=== PATIENT | male | born 1960 | race Caucasian/White ===

== ENCOUNTER 2017-07-04 11:45 | Inpatient (IN) | payer OTHER ==
[~2017-07-04] VITALS: Ht 172.7 cm; Wt 87.9 kg
[2017-07-04 13:04] LABS: APPEARANCE CLOUDY (CLEAR); BACTERIA MANY /hpf (NONE SEEN); COLOR ORANGE (YELLOW); EPITHELIAL CELLS OCC /hpf (0-5); MUCUS <1+ /lpf (NONE SEEN); RED CELLS - URINE 0-5 /hpf (0-5); SPECIFIC GRAVITY 1.015 (1.005-1.020); WHITE CELLS - URINE >50 /hpf (0-5)
[2017-07-04 15:03] LABS: BASOPHILS 0.1 % (0-2); EOSINOPHILS 0.1 % (0-7); HEMATOCRIT 39.7 % (42.0-54.0); HEMOGLOBIN 13.8 g/dL (13.5-17.5); IMMATURE GRANULOCYTES 0.5 % (0-5); LYMPHOCYTES 12.7 % (15-50); MCH 32.6 pg (26.0-34.0); MCHC 34.8 g/dL (31.0-37.0); MCV 93.9 fL (80.0-100.0); MONOCYTES 6.4 % (2-11); NEUTROPHILS 80.2 % (40-80); PLATELET COUNT 180 10x3/uL (130-400); RBC 4.23 10x6/uL (4.20-6.10); RDW 11.4 % (11.5-14.5); WBC 14.4 10x3/uL (4.8-10.8)
[2017-07-04 15:26] LABS: ALBUMIN 3.1 g/dL (3.4-5.0); ANION GAP 15.9 mmol/L (8-16); BILIRUBIN - TOTAL 0.73 mg/dL (0.2-1.3); CALCIUM 8.4 mg/dL (8.5-10.1); CARBON DIOXIDE 24.1 mmol/L (21.0-32.0); CREATININE - SERUM 1.3 mg/dL (0.6-1.3); MAGNESIUM - SERUM 2.2 mg/dL (1.8-2.4); PROTEIN - SERUM 6.8 g/dL (6.4-8.2)
[2017-07-04] MEDS ORDERED: NEURONTIN 400400 MG PO (21:15)
[2017-07-04] MEDS ORDERED: TENORMIN100 MG PO (21:16)
[2017-07-04] MEDS ORDERED: BUPROPION HCL150 M1 PO (21:16)
[2017-07-04] MEDS ORDERED: CYCLOBENZAPRINE10 MG PO (21:17)
[2017-07-04] MEDS ORDERED: MOBIC7.5 MG PO (21:17)
[2017-07-04] MEDS ORDERED: ZETIA10 MG PO (21:17)
[2017-07-04] MEDS ORDERED: BUTALB-APAP-CA1 EACH PO (21:18)
[2017-07-04] MEDS ORDERED: BAYER CHEWABLE81 MG PO (21:18)
[2017-07-04] MEDS ORDERED: VITAMIN D2000 UNIT PO (21:19)
[2017-07-04] MEDS ORDERED: ULTRAM50 MG PO (21:19)
[2017-07-04] MEDS ORDERED: CLARITIN10 MG/TAB PO (21:20)
--- NOTE | 2017-07-04 21:28 | NUR ---
PATIENT ARRIVED FROM THE ER VIA WHEELCHAIR, ALERT AND ORIENTED TO ROOM AND CALL LIGHT. SPOUSE AT BEDSIDE. CALL LIGHT IN REACH.
[2017-07-05] VITALS (7 sets, daily range): BP systolic 102–118; BP diastolic 50–76; Ht 172.7 cm; Wt 87.9 kg
--- NOTE | 2017-07-05 00:58 | NUR ---
MORPHINE 4 MG GIVEN FPR C/O PAIN TO HEAD.
--- NOTE | 2017-07-05 02:50 | NUR ---
TYLENOL 650 MG GIVEN AT PT REQUEST FOR C/O DIEGO. AT BED SIDE.
--- NOTE | 2017-07-05 08:20 | NUR ---
AM ROUNDS - PT IS AWAKE AT THIS TIME AND IN BED. MONITOR SHOWING SR, HR 89. O2 AT 4L VIA NC. IV TO RIGTH BREAST. NO NEEDS AT THIS TIME. BED AT LOWEST POSITION. CALL TAVARES IN USE/REACH. SIDE RAILS UP X2. WILL CONTINUE TO MONITOR
--- NOTE | 2017-07-05 08:28 | NUR ---
AM ROUNDS - PT IS IN BED AND AWAKE AT THIS TIME. AT BEDSIDE. IV TO RIGTH FA, SL PT IS ON ROOM AIR. PT IS UP AD ROBERT. BED AT LOWEST POSITION. CALL TAVARES IN USE/REACH. SIDE RAILS UP X2. WILL CONTINUE TO MONITOR
[2017-07-05 11:25] LABS: BASOPHILS 0.1 % (0-2); EOSINOPHILS 0.4 % (0-7); HEMATOCRIT 36.2 % (42.0-54.0); HEMOGLOBIN 12.4 g/dL (13.5-17.5); IMMATURE GRANULOCYTES 0.4 % (0-5); LYMPHOCYTES 8.1 % (15-50); MCHC 34.3 g/dL (31.0-37.0); MCV 93.3 fL (80.0-100.0); MEAN PLATELET VOLUME 9.9 fL (7.4-10.4); PLATELET COUNT 191 10x3/uL (130-400); RBC 3.88 10x6/uL (4.20-6.10); RDW 11.6 % (11.5-14.5); WBC 11.2 10x3/uL (4.8-10.8)
[2017-07-05 11:53] LABS: ANION GAP 11.8 mmol/L (8-16); CALCIUM 8.5 mg/dL (8.5-10.1); CARBON DIOXIDE 25.1 mmol/L (21.0-32.0); CREATININE - SERUM 1.2 mg/dL (0.6-1.3); POTASSIUM - SERUM 3.9 mmol/L (3.5-5.1)
--- NOTE | 2017-07-05 20:14 | NUR ---
PATIENT IS C/O HEADACHE AT A 10 ON PAIN SCALE, STATES THAT NOTHING HELPS TAKE THE PAIN AWAY. I SPOKE WITH SHANNON BROWNLEE AND GOT AN ORDER TO D/C MORPHINE AND START DILAUDID 1 MG Q 6 HOURS PRN AND TO CHANGE IT TO Q 4 HOURS IF IT DOSENT HELP. PATIENT C/O HIS HAIR HURTING DUE TO THE HEADACHE. PATIENT AND SPOUSE WERE NOTIFIED OF THE NEW ORDER. CALL LIGHT IN REACH, WILL CONTINUE TO MONITOR.
[2017-07-06 02:21] VITALS: BP 114/73
--- NOTE | 2017-07-06 03:13 | NUR ---
BRIQUETTE OPERATOR AT BEDSIDE TO OBTAIN VITALS, CALL LIGHT IN REACH. WILL CONTINUE WITH PLAN OF CARE.
[2017-07-06 05:55] LABS: BASOPHILS 0.2 % (0-2); EOSINOPHILS 0.1 % (0-7); HEMATOCRIT 38.6 % (42.0-54.0); IMMATURE GRANULOCYTES 0.7 % (0-5); LYMPHOCYTES 9.4 % (15-50); MCH 31.8 pg (26.0-34.0); MCHC 33.7 g/dL (31.0-37.0); MCV 94.4 fL (80.0-100.0); MEAN PLATELET VOLUME 10.4 fL (7.4-10.4); MONOCYTES 8.8 % (2-11); NEUTROPHILS 80.8 % (40-80); RBC 4.09 10x6/uL (4.20-6.10); RDW 11.5 % (11.5-14.5); WBC 9.7 10x3/uL (4.8-10.8)
[2017-07-06 06:04] LABS: PLATELET COUNT 238 10x3/uL (130-400)
[2017-07-06 06:13] LABS: ANION GAP 13.9 mmol/L (8-16); C-REACTIVE PROTEIN 41.5 mg/dL (0.0-0.9); CARBON DIOXIDE 26.4 mmol/L (21.0-32.0); CREATININE - SERUM 1.1 mg/dL (0.6-1.3); POTASSIUM - SERUM 4.3 mmol/L (3.5-5.1)
[2017-07-06 06:19] VITALS: BP 136/82
--- NOTE | 2017-07-06 07:10 | NUR ---
REPORT RECEIVED. RR EVEN AND UNLABORED, PT DENIES NEEDS AT THIS TIME. FAMILY AT BEDSIDE. REPORTS FEELING "MUCH BETTER" TODAY. WILL CTM.
[2017-07-06 07:52] VITALS: BP 130/82
[2017-07-06] MEDS ORDERED: ZANTAC300 MG PO (09:54)
[2017-07-06 12:30] VITALS: BP 145/85
[2017-07-06 16:01] VITALS: BP 108/59
--- NOTE | 2017-07-06 17:00 | NUR ---
PTS TEMP IS ELEVATED PER STAMP CLASSIFIER VS. RECHECKED TEMP, CURRENTLY 99.3. PT REPORTS FEELING HOT AND IS C/O DIEGO AT 01/14. WILL GIVE PRN TYLENOL AND CTM.
--- NOTE | 2017-07-06 18:30 | NUR ---
PT RESTING QUIETLY, PAIN IN HEAD HAS DECREASED. FAMILY AT BEDSIDE. RR EVEN AND UNLABORED. WILL GIVE REPORT ON PT CONDITION FOR THE DAY.
[2017-07-06 20:27] VITALS: BP 119/78
[2017-07-07 00:33] VITALS: BP 135/77
--- NOTE | 2017-07-07 03:19 | NUR ---
SENIOR INTERACTIVE PRODUCER AT BEDSIDE TO OBTAIN VITALS, CALL LIGHT IN REACH. WILL CONTINUE WITH PLAN OF CARE.
[2017-07-07 04:33] VITALS: BP 118/65
[2017-07-07 05:24] LABS: BASOPHILS 0.4 % (0-2); EOSINOPHILS 1.5 % (0-7); HEMATOCRIT 38.1 % (42.0-54.0); HEMOGLOBIN 12.7 g/dL (13.5-17.5); IMMATURE GRANULOCYTES 0.6 % (0-5); LYMPHOCYTES 13.4 % (15-50); MCH 31.3 pg (26.0-34.0); MCHC 33.3 g/dL (31.0-37.0); MCV 93.8 fL (80.0-100.0); MEAN PLATELET VOLUME 10.1 fL (7.4-10.4); MONOCYTES 7.7 % (2-11); NEUTROPHILS 76.4 % (40-80); PLATELET COUNT 259 10x3/uL (130-400); RBC 4.06 10x6/uL (4.20-6.10); RDW 11.5 % (11.5-14.5); WBC 8.3 10x3/uL (4.8-10.8)
[2017-07-07 05:26] LABS: ANION GAP 13.9 mmol/L (8-16); C-REACTIVE PROTEIN 12.7 mg/dL (0.0-0.9); CALCIUM 8.8 mg/dL (8.5-10.1); CARBON DIOXIDE 26.5 mmol/L (21.0-32.0); CREATININE - SERUM 1.2 mg/dL (0.6-1.3); POTASSIUM - SERUM 4.4 mmol/L (3.5-5.1)
--- NOTE | 2017-07-07 07:15 | NUR ---
REPORT RECEIVED. PT RESTING QUIETLY, RR EVEN AND UNLABORED. REPORTS PAIN IN LLQ OF ABDOMEN. OFFERED DILUDID, PT REPORTED THAT THIS "GIVES HIM NIGHMARES." REPORTED THAT HE WOULD LIKE SOME TYLENOL. WILL GIVE AND CTM PAIN.
[2017-07-07 08:33] VITALS: BP 121/76
[2017-07-07 12:50] VITALS: BP 136/80
[2017-07-07] MEDS ORDERED: PROSCAR5 MG PO ×2 (13:40→13:53)
[2017-07-07] MEDS ORDERED: LEVAQUIN750 MG PO ×2 (13:41→13:53)
[2017-07-07] MEDS ORDERED: FLOMAX0.4 MG PO (13:52)
--- NOTE | 2017-07-07 14:10 | NUR ---
MEDICAITON GIVEN. DISCUSSED D/C TODAY. PT AND FAMILY VERBALIZED UNDERSTANDING. WILL DISCHARGE PT WHEN PAPERWORK IS READY.
--- NOTE | 2017-07-07 16:15 | NUR ---
PT DISCHARGED. D/C INSTRUCTIONS PROVIDED TO PT AND FAMILY, PAPERWORK SIGNED. PT AND FAMILY VERBALIZED UNDERSTANDING. WRITTEN SCRIPTS GIVEN TO PT. IV CATHETER REMOVED WITH CATHETER TIP INTACT. PT DENIES FURTHER NEEDS. TOOK PT OUT VIA WHEELCHAIR, WENT HOME WITH FAMILY MEMEBER. VERBALIZED SATISFACTION WITH CARE.
[2017-07-07 16:22] VITALS: BP 123/83
--- NOTE | 2017-07-07 19:10 | NUR ---
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 Yes 0 * How many steps to enter\exit or inside your home? NONE 0 * PCP [facility]HR[facility] * Pharmacy [facility] 0 * Preadmission Environment Home with Family 0 * ADLs Independent 0 * Equipment Nebulizer 0 * Other Equipment [facility] IF HE EVER NEEDS ANYTHING 0 * List name and contact numbers for known caregivers / representatives who currently or will assist patient after discharge: YENNY GREENBERG, SPOUSE, 0 * Community resources currently utilized None 0 * Please name any agencies selected above. NONE 0 * Additional services required to return to the preadmission environment? No 0 * Can the patient safely return to the preadmission environment? Yes 0 * Has this patient been hospitalized within the prior 30 days at any hospital? No 0 CM MET WITH PT IN ROOM TO DISCUSS DISCHARGE PLANNING AND NEEDS. PT REPORTS LIVING AT HOME INDEPENDENTLY WITH SPOUSE. PT HAS NO MEDICAL EQUIPMENT AND NO OUTSIDE SERVICES ASSISTING IN THE HOME. CM DISCUSSED AVAILABILITY OF HOME HEALTH, REHAB SERVICES AND MEDICAL EQUIPMENT. PT DENIES DISCHARGE NEEDS, REPORTS SPOUSE IS HERE AND WILL PICK HIM UP FOR DISCHARGE HOME TODAY. PT REPORTS THAT HE WAS SENT TO THE ER BY THE [facility] AND WAS TOLD IN ER THAT THE [facility] WAS PRIMARY FOR COVERAGE OF THIS STAY. PT ASKED CM TO FAX HIS DISCHARGE INFORMATION TO [facility] FOR HIS CONTINUED CARE. CM NOTIFIED REGISTRATION VIA EMAIL AND FAXED DISCHARGE INFORMATION TO [facility] AT [phone]. [employer] Consultant: Ion Cooper
== END 2017-07-07 16:34 | disposition home or self-care (01) | DRG 728 ==
LOC: D.ER 11:45 → D.M2 18:20
PROVIDERS: Emergency Medicine; ADMIT Family Medicine
DX: N41.0 Acute prostatitis (principal); N13.8 Other obstructive and reflux uropathy; N10 Acute pyelonephritis; R51 Headache; B96.89 Other specified bacterial agents as the cause of diseases classified elsewhere; N40.1 Benign prostatic hyperplasia with lower urinary tract symptoms